=== PATIENT | female | born 1950 | race Hispanic/Latino ===

== ENCOUNTER 2020-10-23 02:39 | Inpatient (IN) | payer MEDICARE ==
[2020-10-23] MEDS ORDERED: ALBUTEROL 2.5 MG/3 ML NEBU IH PRN (09:34)
--- NOTE | 2020-10-23 09:38 | History and Physical Report ---
GP History & Physical - History of Present Illness Date of admission: 10/22/20 Date of Examination: 10/23/20 Reason for Admission: Danger to self, Failure of Outpatient Treatment, Severe anxiety/depression History of Present Illness: Latha Galindo is a 70 y/o female patient who states she was admitted to the [facility] psych unit for severe depression. The patient also says she has a history of "moderate dementia and depression." She says she lost her spouse 3 years ago and her depression started then. The patient says she lacks social support. She says her and her kids "are on the oust." She denies suicidal thoughts at present but states she's thought of it "on and off." She denies homicidal thoughts. The patient also denies hallucinations of any kind. She says she saw a psychiatrist about a year ago but not since then. Diagnoses: MDD, mod dementia Suicide attempts or Self-harm behavior: Denies Prior psychiatric hospitalizations: Denies Substance Abuse history: Denies Previous psychiatric medications tried: Denies Outpatient treatment: Denies PAST MEDICAL HISTORY: None reported Family Psychiatric History: None reported or documented SOCIAL HISTORY Marital Status: Living Arrangements: alone Employment Status: Retired Access to guns/weapons: Denies Education: History of Abuse: none reported Legal History: none reported REVIEW OF SYSTEMS Constitutional: Negative for weight loss ENT: Negative for stridor Respiratory: Negative for cough or hemoptysis All other systems reviewed and are negative MENTAL STATUS EXAMINATION General Appearance and Behavior: Age appropriate, good hygiene, wearing appropriate clothes, sleeping, cooperative Cooperation: Participating/engaged Psychomotor Behavior: Tremors Mood: Depressed Affect and affective range: congruent with mood Thought Process: goal oriented Thought Content: depression, SI on and off Speech: Normal volume, Regular rate and rhythm, Suicidal Ideation: Denies at present, but states has on and off Homicidal Ideation: Denies Hallucinations: Denies Delusions: None elicited Impulse Control: impaired Insight and Judgment: limited insight and judgment, Memory: normal Attention: Normal Orientation: Alert, oriented Assessment and Plan (1)Major Depressive Disorder Current Visit: Yes Status: Acute Treatment Plan Patient admitted for inpatient psychiatric evaluation, medication adjustment and close monitoring The patient's behavior, mood, sleep and appetite will be closely monitored. Patient enrolled in individual and group therapeutic sessions and encouraged to attend. Patient provided with a safe and structured environment. Patient's physical health needs will be addressed by the Hospitalist. Hospitalist Consulted Labs including CBC, CMP, Lipid profile and Hemoglobin A1C levels ordered for baseline reference Social Assessment will be completed and the Weaving Inspector will work with patient and family to ensure a suitable and safe disposition Medication adjustment will be made as clinically indicated Increased home Prozac 30mg po qd Usual Wellness Anabaptist/Preservation: - Start Trazodone 50 mg po QHS & 50 mg po QHS PRN between 10 PM & 2 AM for insomnia - Start Melatonin 5 mg po QHS to promote circadian rhythm The patient agreed on the treatment plan, understood the risk, benefit, alternative treatment, potential consequence of no treatment, and gave informed consent. Estimated days: 7 Post hospital care: primary care provider, psychiatric provider Case staffed with Dr. Agudelo Legal Status: Voluntary Reaction to Hospitalization: Accepting Medications and Allergies Allergies Allergy/AdvReac Type Severity Reaction Status Date / Time No Known Drug Allergies Allergy Unknown Verified 10/23/20 02:44 Home Medications Medication Instructions Recorded Confirmed Last Taken Type ALPRAZolam [Xanax TAB] 1 mg PO TID PRN 10/23/20 10/23/20 Unknown History Albuterol *Only Ed* [Proventil 2.5 mg IH Q4H PRN 10/23/20 10/23/20 Unknown History 0.5% NEBS] Amitriptyline [Elavil] 10 mg PO HS 10/23/20 10/23/20 Unknown History Anastrozole [Arimidex] 1 mg PO DAILY 10/23/20 10/23/20 Unknown History Celecoxib [celeBREX] 200 mg PO DAILY 10/23/20 10/23/20 Unknown History Cyclobenzaprine [Flexeril 10 MG 10 mg PO Q8H 10/23/20 10/23/20 Unknown History TAB] FLUoxetine [PROzac] 20 mg PO QDAY 10/23/20 10/23/20 Unknown History Fenofibrate 160 mg PO HS 10/23/20 10/23/20 Unknown History Gabapentin [Neurontin] 800 mg PO TID 10/23/20 10/23/20 Unknown History HYDROcodone/ACETAMINOPHEN 7.5 - 325 mg PO Q8H 10/23/20 10/23/20 Unknown History [Hydrocodone-Acetamin 7.5-300] Levothyroxine [Synthroid] 150 mcg PO QAM 10/23/20 10/23/20 Unknown History Methylphenidate HCl [Ritalin] 20 mg PO TID 10/23/20 10/23/20 Unknown History Pravastatin [Pravachol] 40 mg PO HS 10/23/20 10/23/20 Unknown History Active Meds: Active Medications Fluoxetine HCl (Fluoxetine 20 Mg Cap) 20 mg PO QDAY [facility] Levothyroxine Sodium (Levothyroxine 150 Mcg Tab) 150 mcg PO QAM [facility] Miscellaneous Medication (Albuterol *Only Ed* [Proventil 0.5% Nebs]) 2.5 mg IH Q4H PRN PRN Reason: Wheezing Miscellaneous Medication (Anastrozole [Arimidex]) 1 mg PO DAILY [facility] Miscellaneous Medication (Gabapentin [Neurontin]) 800 mg PO TID [facility] Pravastatin Sodium (Pravastatin 40 Mg Tab) 40 mg PO HS [facility] Results - Results Labs/Vitals: Last Vital Signs Temp 98.1 F 10/23/20 09:06 Pulse 82 10/23/20 09:06 Resp 20 10/23/20 09:06 BP 121/71 10/23/20 09:06 Pulse Ox 97 10/23/20 09:06 Physical Examination - Constitutional Vitals: Vital Signs Temp Pulse Resp BP Pulse Ox 98.1 F 82 20 121/71 97 10/23/20 09:06 10/23/20 09:06 10/23/20 09:06 10/23/20 09:06 10/23/20 09:06 Temperature -Last 24 Hours Temperature 98.1 F Mental Status Exam - Vital signs Last Vital Signs Temp 98.1 F 10/23/20 09:06 Pulse 82 10/23/20 09:06 Resp 20 10/23/20 09:06 BP 121/71 10/23/20 09:06 Pulse Ox 97 10/23/20 09:06 Physician Certification - Certification Statement Physician Certification Statement: This is an acknowledgement statement that LATHA GALINDO is a 70 year old F who requires inpatient psychiatric admission for treatment which could reasonably be expected to improve the patient's condition for Estimated period of time patient will need to remain in the hospital: [ ] Plan for post-hospital care: [ ]
--- NOTE | 2020-10-23 09:38 | Consultation ---
History of Present Illness - Reason for Consult Consult date: 10/23/20 medical mgt - History of Present Illness Patient is a 70-year-old female with a history of bipolar disorder, depression, fibromyalgia, breast cancer in remission, hypothyroidism, chronic pain presented to ED with chief complaint of helplessness hopelessness feeling suicidal. Patient was admitted for more aggressive psychiatric treatment. Asked to evaluate patient treatment of chronic medical disease. Patient at present states she is in pain from neuropathy and her back. Patient denies any signs or symptoms of hypo or hyperthyroidism. Patient does mention sadness. Does not mention suicide right now at this time. Patient states that she feels nothing is going right for her. Past History Past Medical History: arthritis, GERD, hypertension, hypothyroidism. denies: acute MO, atrial fib, arrhythmia, anemia, CAD, cancer, COPD, diabetes, ESRD, heart failure, hepatitis, HIV/AIDS, hyperthyroidism, hyperlipidemia, liver disease, migraines, PVD, pulmonary embolism, renal failure, seizures, stroke, sarcoidosis Past Surgical History: No surgical history Social history: single, lives with family, smoking, full code. denies: alcohol abuse, IV drug use Family history: no significant family history Medications and Allergies Allergies Allergy/AdvReac Type Severity Reaction Status Date / Time No Known Drug Allergies Allergy Unknown Verified 10/23/20 02:44 Home Medications Medication Instructions Recorded Confirmed Last Taken Type ALPRAZolam [Xanax TAB] 1 mg PO TID PRN 10/23/20 10/23/20 Unknown History Albuterol *Only Ed* [Proventil 2.5 mg IH Q4H PRN 10/23/20 10/23/20 Unknown History 0.5% NEBS] Amitriptyline [Elavil] 10 mg PO HS 10/23/20 10/23/20 Unknown History Anastrozole [Arimidex] 1 mg PO DAILY 10/23/20 10/23/20 Unknown History Celecoxib [celeBREX] 200 mg PO DAILY 10/23/20 10/23/20 Unknown History Cyclobenzaprine [Flexeril 10 MG 10 mg PO Q8H 10/23/20 10/23/20 Unknown History TAB] FLUoxetine [PROzac] 20 mg PO QDAY 10/23/20 10/23/20 Unknown History Fenofibrate 160 mg PO HS 10/23/20 10/23/20 Unknown History Gabapentin [Neurontin] 800 mg PO TID 10/23/20 10/23/20 Unknown History HYDROcodone/ACETAMINOPHEN 7.5 - 325 mg PO Q8H 10/23/20 10/23/20 Unknown History [Hydrocodone-Acetamin 7.5-300] Levothyroxine [Synthroid] 150 mcg PO QAM 10/23/20 10/23/20 Unknown History Methylphenidate HCl [Ritalin] 20 mg PO TID 10/23/20 10/23/20 Unknown History Pravastatin [Pravachol] 40 mg PO HS 10/23/20 10/23/20 Unknown History Review of Systems Constitutional: fatigue, weakness, poor appetite, chronic pain, no weight loss, no weight gain, no fever, no chills, no sweats, no anorexia, no malaise, no lethargy, no chronic headaches, no daytime sleepiness Ears, nose, mouth and throat: no nasal congestion, no bleeding gums, no dysphagia, no hoarseness, no headache, no pain front of neck Cardiovascular: no orthopnea, no lightheadedness, no phlebitis Respiratory: no cough with sputum, no pleurisy, no home oxygen Gastrointestinal: no nausea, no vomiting, no constipation, no change in bowel habits, no melena, no loss of appetite, no heartburn, no jaundice, no early satiety Musculoskeletal: neck stiffness, neck pain, low back pain, leg numbness/tingling, muscle weakness, limitation of motion, no morning stiffness, no muscle cramps, no myalgias, no atrophy, no frequent falls, no fractures, no prior amputations Neurological: weakness, parathesias, numbness, headaches, no head injury, no transient paralysis, no paralysis, no tingling, no seizures, no syncope, no tremors, no ataxia, no lack of coordination, no change in speech, no change in mentation, no memory loss, no double vision, no burning pain, no paralysis Psychiatric: anxiety, memory loss, change in sleep habits, sleep disturbances, insomnia, suicidal ideation, depression, hopelessness, mood swings, no change in appetite, no hallucinations, no paranoia, no anhedonia, no confusion, no sadness/tearfullness Endocrine: no cold intolerance, no polyphagia, no polydipsia, no polyuria, no weight change, no increase in ring/shoe/hat size, no proptosis, no palpatations, no low blood sugars Hematologic/Lymphatic: no easy bleeding Allergic/Immunologic: no allergic rhinitis, no anaphylaxis, no angioedema, no gl uten intolerance Exam - Constitutional Vitals: Temp Pulse Resp BP Pulse Ox 98.1 F 82 20 121/71 97 10/23/20 09:06 10/23/20 09:06 10/23/20 09:06 10/23/20 09:06 10/23/20 09:06 General appearance: Present: no acute distress, well-nourished - EENT Eyes: Present: PERRL ENT: hearing intact, clear oral mucosa - Neck Neck: Present: supple, normal ROM - Respiratory Respiratory effort: normal Respiratory: bilateral: CTA - Cardiovascular Heart Sounds: Present: S1 & S2. Absent: rub, click - Extremities Extremities: pulses symmetrical, No edema Peripheral Pulses: within normal limits - Abdominal General gastrointestinal: Present: soft, non-tender, non-distended, normal bowel sounds Female genitourinary: Present: normal - Integumentary Integumentary: Present: clear, warm, dry - Musculoskeletal Musculoskeletal: gait normal, strength equal bilaterally - Psychiatric Psychiatric: appropriate mood/affect, intact judgment & insight - Neurologic Neurologic: CNII-XII intact, moves all extremities Results - Labs CBC & Chem 7: 10/23/20 23:50 10/23/20 23:50 Assessment and Plan - Patient Problems (1) Fibromyalgia Current Visit: Yes Status: Acute Plan to address problem: Patient with fibromyalgia by history. We will add back her antidepressant. Her description of pain is inconsistent with fibromyalgia at this time. Continue aggressive pain control which she was doing. Should help with her depression and her mood if her pain is treated. (2) Chronic pain Current Visit: Yes Status: Acute Plan to address problem: Hydrocodone 3 times daily. As needed. (3) Hypothyroidism Current Visit: Yes Status: Acute Plan to address problem: No signs and symptoms of hypo or hyperthyroidism. We will continue Synthroid at current dosage. (4) Herniated disc Current Visit: Yes Status: Acute Plan to address problem: We will treat with NSAID Celebrex Wilkes 2 inhibitor. We will add as needed hydrocodone. Also will treat the neuropathy with gabapentin.
[2020-10-23] MEDS ORDERED: FLUoxetine 20 MG CAP PO SCH (10:00)
[2020-10-23] MEDS ORDERED: NON-FORMULARY EACH (Anastrozole [Arimidex] 1 MG Tablet) PO SCH (10:00)
[2020-10-23] MEDS: FLUoxetine 10 MG TAB PO SCH (10:19)
[2020-10-23] MEDS: CELECOXIB 200 MG CAP PO SCH (10:20)
[2020-10-23] MEDS: CYCLOBENZAPRINE 10 MG TAB PO SCH ×2 (10:21→18:00)
[2020-10-23] MEDS: LEVOTHYROXINE 150 MCG TAB PO SCH (10:21)
[2020-10-23] MEDS: ALPRAZolam 1 MG TAB PO PRN ×2 (10:24→21:08)
[2020-10-23] MEDS: GABAPENTIN 400 MG CAP PO SCH ×2 (13:50→20:43)
[2020-10-23 14:44] LABS: Bacteria,Urine 1+ /HPF (Negative); Bilirubin,Urine NEG (Negative); Blood,Urine NEG (Negative); Color,Urine Yellow (Yellow); Protein,Urine <15 mg/dL mg/dL (Negative); RBC,Urine < 1.0 /HPF (0.0-6.0); Urobilinogen,Urine < 2.0 mg/dL (<2.0)
[2020-10-23] MEDS: PRAVASTATIN 40 MG TAB PO SCH (21:06)
[2020-10-23] MEDS: FENOFIBRATE 145 MG TAB PO SCH (21:06)
[2020-10-23] MEDS: AMITRIPTYLINE 10 MG TAB PO SCH (21:06)
[2020-10-24 00:45] LABS: Basophils % (Auto) 0.6 % (0.0-1.8); Eosinophils # (Auto) 0.1 K/mm3 (0.0-0.4); Eosinophils % (Auto) 1.5 % (0.0-4.3); Hematocrit 36.6 % (30.3-42.9); Hemoglobin 12.1 gm/dl (10.1-14.3); Lymphocytes # (Auto) 2.5 K/mm3 (1.2-5.4); Lymphocytes % (Auto) 28.3 % (13.4-35.0); Mean Corpuscular HGB Conc 33 % (30-34); Mean Corpuscular Volume 82 fl (79-97); Monocytes # (Auto) 0.8 K/mm3 (0.0-0.8); Monocytes % (Auto) 9.1 % (0.0-7.3); Platelet Count 401 K/mm3 (140-440); Red Blood Count 4.47 M/mm3 (3.65-5.03); Red Cell Distribution Width 15.7 % (13.2-15.2)
[2020-10-24 03:46] LABS: Alanine Aminotransferase 10 units/L (7-56); Albumin 4.3 g/dL (3.9-5); BUN/Creatinine Ratio 24; Blood Urea Nitrogen 19 mg/dL (7-17); Calcium 9.6 mg/dL (8.4-10.2); HDL Cholesterol 42 mg/dL (40-59); Hemolysis Index 7; LDL Cholesterol,Direct 175 mg/dL (50-130)
[2020-10-24] MEDS: CYCLOBENZAPRINE 10 MG TAB PO SCH ×3 (06:50→17:19)
[2020-10-24] MEDS: GABAPENTIN 400 MG CAP PO SCH ×3 (08:31→20:52)
[2020-10-24] MEDS: LEVOTHYROXINE 150 MCG TAB PO SCH (09:20)
[2020-10-24] MEDS: FLUoxetine 10 MG TAB PO SCH (09:20)
[2020-10-24] MEDS: CELECOXIB 200 MG CAP PO SCH (09:21)
--- NOTE | 2020-10-24 09:52 | Progress Note ---
Subjective Date of service: 10/24/20 Principal diagnosis: MDD Subjective Comment: The patient was seen today. She is lying awake in her room. She says she is depressed, lonely and needs someone to talk to. The patient encouraged to get up and go in the dayroom to be around people. She states she would. She denies SI/HI or hallucinations. She suicide thoughts come and go. REVIEW OF SYSTEMS Constitutional: Negative for weight loss ENT: Negative for stridor Respiratory: Negative for cough or hemoptysis All other systems reviewed and are negative MENTAL STATUS EXAMINATION General Appearance and Behavior: Age appropriate, good hygiene, wearing appropriate clothes, sleeping, cooperative Cooperation: Participating/engaged Psychomotor Behavior: Tremors Mood: Depressed Affect and affective range: congruent with mood Thought Process: goal oriented Thought Content: depression, SI on and off Speech: Normal volume, Regular rate and rhythm, Suicidal Ideation: Denies at present, but states has on and off Homicidal Ideation: Denies Hallucinations: Denies Delusions: None elicited Impulse Control: impaired Insight and Judgment: limited insight and judgment, Memory: normal Attention: Normal Orientation: Alert, oriented Assessment and Plan (1)Major Depressive Disorder Current Visit: Yes Status: Acute Treatment Plan Patient admitted for inpatient psychiatric evaluation, medication adjustment and close monitoring The patient's behavior, mood, sleep and appetite will be closely monitored. Patient enrolled in individual and group therapeutic sessions and encouraged to attend. Patient provided with a safe and structured environment. Patient's physical health needs will be addressed by the Hospitalist. [facility] Labs including CBC, CMP, Lipid profile and Hemoglobin A1C levels ordered for baseline reference Social Assessment will be completed and the Boom Worker will work with patient and family to ensure a suitable and safe disposition Medication adjustment will be made as clinically indicated Increased home Prozac 40mg po qd Usual Wellness Anabaptism/Preservation: - Start Trazodone 50 mg po QHS & 50 mg po QHS PRN between 10 PM & 2 AM for insomnia - Start Melatonin 5 mg po QHS to promote circadian rhythm The patient agreed on the treatment plan, understood the risk, benefit, alternative treatment, potential consequence of no treatment, and gave informed consent. Estimated days: 6 Post hospital care: primary care provider, psychiatric provider Case staffed with Dr. Agudelo Medications and Allergies Allergies Allergy/AdvReac Type Severity Reaction Status Date / Time No Known Drug Allergies Allergy Unknown Verified 10/23/20 02:44 Home Medications Medication Instructions Recorded Confirmed Last Taken Type ALPRAZolam [Xanax TAB] 1 mg PO TID PRN 10/23/20 10/23/20 Unknown History Albuterol *Only Ed* [Proventil 2.5 mg IH Q4H PRN 10/23/20 10/23/20 Unknown History 0.5% NEBS] Amitriptyline [Elavil] 10 mg PO HS 10/23/20 10/23/20 Unknown History Anastrozole [Arimidex] 1 mg PO DAILY 10/23/20 10/23/20 Unknown History Celecoxib [celeBREX] 200 mg PO DAILY 10/23/20 10/23/20 Unknown History Cyclobenzaprine [Flexeril 10 MG 10 mg PO Q8H 10/23/20 10/23/20 Unknown History TAB] FLUoxetine [PROzac] 20 mg PO QDAY 10/23/20 10/23/20 Unknown History Fenofibrate 160 mg PO HS 10/23/20 10/23/20 Unknown History Gabapentin [Neurontin] 800 mg PO TID 10/23/20 10/23/20 Unknown History HYDROcodone/ACETAMINOPHEN 7.5 - 325 mg PO Q8H 10/23/20 10/23/20 Unknown History [Hydrocodone-Acetamin 7.5-300] Levothyroxine [Synthroid] 150 mcg PO QAM 10/23/20 10/23/20 Unknown History Methylphenidate HCl [Ritalin] 20 mg PO TID 10/23/20 10/23/20 Unknown History Pravastatin [Pravachol] 40 mg PO HS 10/23/20 10/23/20 Unknown History Active Meds: Active Medications Albuterol (Albuterol 2.5 Mg/3 Ml Nebu) 2.5 mg IH Q4H PRN PRN Reason: Wheezing Alprazolam (Alprazolam 1 Mg Tab) 1 mg PO TID PRN PRN Reason: Anxiety Last Admin: 10/23/20 21:08 Dose: 1 mg Documented by: Amitriptyline HCl (Amitriptyline 10 Mg Tab) 10 mg PO [facility] Last Admin: 10/23/20 21:06 Dose: 10 mg Documented by: Celecoxib (Celecoxib 200 Mg Cap) 200 mg PO DAILY [facility] Last Admin: 10/24/20 09:21 Dose: 200 mg Documented by: Cyclobenzaprine HCl (Cyclobenzaprine 10 Mg Tab) 10 mg PO Q8H [facility] Last Admin: 10/24/20 09:21 Dose: 10 mg Documented by: Fenofibrate (Fenofibrate 145 Mg Tab) 145 mg PO HS [facility] Last Admin: 10/23/20 21:06 Dose: 145 mg Documented by: Fluoxetine HCl (Fluoxetine 10 Mg Tab) 30 mg PO QDAY [facility] Last Admin: 10/24/20 09:20 Dose: 30 mg Documented by: Gabapentin (Gabapentin 400 Mg Cap) 800 mg PO TID [facility] Last Admin: 10/24/20 08:31 Dose: 800 mg Documented by: Levothyroxine Sodium (Levothyroxine 150 Mcg Tab) 150 mcg PO QAM [facility] Last Admin: 10/24/20 09:20 Dose: 150 mcg Documented by: Miscellaneous Medication (Anastrozole [Arimidex]) 1 mg PO DAILY [facility] Pravastatin Sodium (Pravastatin 40 Mg Tab) 40 mg PO HS [facility] Last Admin: 10/23/20 21:06 Dose: 40 mg Documented by: Results - Results Labs/Vitals: Laboratory Last Values WBC 8.9 K/mm3 (4.5-11.0) 10/23/20 23:50 RBC 4.47 M/mm3 (3.65-5.03) 10/23/20 23:50 Hgb 12.1 gm/dl (10.1-14.3) 10/23/20 23:50 Hct 36.6 % (30.3-42.9) 10/23/20 23:50 MCV 82 fl (79-97) 10/23/20 23:50 MCH 27 pg (28-32) L 10/23/20 23:50 MCHC 33 % (30-34) 10/23/20 23:50 RDW 15.7 % (13.2-15.2) H 10/23/20 23:50 Plt Count 401 K/mm3 (140-440) 10/23/20 23:50 Lymph % (Auto) 28.3 % (13.4-35.0) 10/23/20 23:50 [place] % (Auto) 9.1 % (0.0-7.3) H 10/23/20 23:50 Eos % (Auto) 1.5 % (0.0-4.3) 10/23/20 23:50 Baso % (Auto) 0.6 % (0.0-1.8) 10/23/20 23:50 Lymph # (Auto) 2.5 K/mm3 (1.2-5.4) 10/23/20 23:50 Bacon # (Auto) 0.8 K/mm3 (0.0-0.8) 10/23/20 23:50 Eos # (Auto) 0.1 K/mm3 (0.0-0.4) 10/23/20 23:50 Baso # (Auto) 0.0 K/mm3 (0.0-0.1) 10/23/20 23:50 Seg Neutrophils % 60.5 % (40.0-70.0) 10/23/20 23:50 Seg Neutrophils # 5.4 K/mm3 (1.8-7.7) 10/23/20 23:50 Sodium 142 mmol/L (137-145) 10/23/20 23:50 Potassium 4.2 mmol/L (3.6-5.0) 10/23/20 23:50 Chloride 101.7 mmol/L (98-107) 10/23/20 23:50 Carbon Dioxide 25 mmol/L (22-30) 10/23/20 23:50 Anion Gap 20 mmol/L 10/23/20 23:50 BUN 19 mg/dL (7-17) H 10/23/20 23:50 Creatinine 0.8 mg/dL (0.6-1.2) 10/23/20 23:50 Estimated GFR > 60 ml/min 10/23/20 23:50 BUN/Creatinine Ratio 24 % 10/23/20 23:50 Glucose 88 mg/dL (65-100) 10/23/20 23:50 POC Glucose 91 mg/dL (70-105) 10/23/20 11:11 Hemoglobin A1c 5.9 % (4-6) 10/23/20 23:50 Calcium 9.6 mg/dL (8.4-10.2) 10/23/20 23:50 Total Bilirubin 0.20 mg/dL (0.1-1.2) 10/23/20 23:50 AST 22 units/L (5-40) 10/23/20 23:50 ALT 10 units/L (7-56) 10/23/20 23:50 Alkaline Phosphatase 163 units/L (35-129) H 10/23/20 23:50 Total Protein 6.7 g/dL (6.3-8.2) 10/23/20 23:50 Albumin 4.3 g/dL (3.9-5) 10/23/20 23:50 Albumin/Globulin Ratio 1.8 % 10/23/20 23:50 Triglycerides 265 mg/dL (2-149) H 10/23/20 23:50 Cholesterol 248 mg/dL (50-199) H 10/23/20 23:50 LDL Cholesterol Direct 175 mg/dL (50-130) H 10/23/20 23:50 HDL Cholesterol 42 mg/dL (40-59) 10/23/20 23:50 Cholesterol/HDL Ratio 5.90 % 10/23/20 23:50 TSH 1.900 mlU/mL (0.270-4.200) 10/23/20 23:50 Urine Color Yellow (Yellow) 10/23/20 14:00 Urine Turbidity Clear (Clear) 10/23/20 14:00 Urine pH 5.0 (5.0-7.0) 10/23/20 14:00 Ur Specific [place] 1.011 (1.003-1.030) 10/23/20 14:00 Urine Protein <15 mg/dl mg/dL (Negative) 10/23/20 14:00 Urine Glucose (UA) Neg mg/dL (Negative) 10/23/20 14:00 Urine Ketones Neg mg/dL (Negative) 10/23/20 14:00 Urine Blood Neg (Negative) 10/23/20 14:00 Urine Nitrite Neg (Negative) 10/23/20 14:00 Urine Bilirubin Neg (Negative) 10/23/20 14:00 Urine Urobilinogen < 2.0 mg/dL (<2.0) 10/23/20 14:00 Ur Leukocyte Esterase Mod (Negative) 10/23/20 14:00 Urine WBC (Auto) 2.0 /HPF (0.0-6.0) 10/23/20 14:00 Urine RBC (Auto) < 1.0 /HPF (0.0-6.0) 10/23/20 14:00 U Epithel Cells (Auto) 2.0 /HPF (0-13.0) 10/23/20 14:00 Urine Bacteria (Auto) 1+ /HPF (Negative) 10/23/20 14:00 Last Vital Signs Temp 98.0 F 10/24/20 08:34 Pulse 75 10/24/20 08:34 Resp 18 10/24/20 08:34 BP 142/86 10/24/20 08:34 Pulse Ox 100 10/24/20 08:34
[2020-10-24] MEDS ORDERED: FLUoxetine 10 MG TAB PO SCH (11:00)
[2020-10-24] MEDS: ALPRAZolam 1 MG TAB PO PRN (20:51)
[2020-10-24] MEDS: FENOFIBRATE 145 MG TAB PO SCH (21:40)
[2020-10-24] MEDS: AMITRIPTYLINE 10 MG TAB PO SCH (21:40)
[2020-10-24] MEDS: PRAVASTATIN 40 MG TAB PO SCH (21:40)
[2020-10-25] MEDS: CYCLOBENZAPRINE 10 MG TAB PO SCH ×3 (02:05→21:35)
[2020-10-25] MEDS: LEVOTHYROXINE 150 MCG TAB PO SCH (06:15)
[2020-10-25] MEDS: GABAPENTIN 400 MG CAP PO SCH ×3 (08:20→20:49)
[2020-10-25] MEDS: CELECOXIB 200 MG CAP PO SCH (09:09)
[2020-10-25] MEDS: FLUoxetine 20 MG CAP PO SCH (09:10)
--- NOTE | 2020-10-25 10:25 | Progress Note ---
Subjective Date of service: 10/25/20 Principal diagnosis: MDD Subjective Comment: The patient was seen today. She is lying awake in her room. She says she is not good. The patient states "I'm not doing anything but laying here. No therapy. No one to talk to." The patient encouraged to get up and go in the day room. She says "I do but they all just mumble." I informed the patient that tomorrow she would get activity therapy. She was satisfied hearing this. She says "I'm depressed. I need help." She denies SI/HI or hallucinations of any kind. She says "I haven't had the suicidal thoughts this morning, but yesterday a little." REVIEW OF SYSTEMS Constitutional: Negative for weight loss ENT: Negative for stridor Respiratory: Negative for cough or hemoptysis All other systems reviewed and are negative MENTAL STATUS EXAMINATION General Appearance and Behavior: Age appropriate, good hygiene, wearing appropriate clothes, sleeping, cooperative Cooperation: Participating/engaged Psychomotor Behavior: Tremors Mood: Depressed Affect and affective range: congruent with mood Thought Process: goal oriented Thought Content: depression, SI on and off Speech: Normal volume, Regular rate and rhythm, Suicidal Ideation: Denies at present, but states has on and off Homicidal Ideation: Denies Hallucinations: Denies Delusions: None elicited Impulse Control: impaired Insight and Judgment: limited insight and judgment, Memory: normal Attention: Normal Orientation: Alert, oriented Assessment and Plan (1)Major Depressive Disorder Current Visit: Yes Status: Acute Treatment Plan Patient admitted for inpatient psychiatric evaluation, medication adjustment and close monitoring The patient's behavior, mood, sleep and appetite will be closely monitored. Patient enrolled in individual and group therapeutic sessions and encouraged to attend. Patient provided with a safe and structured environment. Patient's physical health needs will be addressed by the Hospitalist. Hospitalist Consulted Labs including CBC, CMP, Lipid profile and Hemoglobin A1C levels ordered for baseline reference Social Assessment will be completed and the Aquaculture Farm Manager will work with patient and family to ensure a suitable and safe disposition Medication adjustment will be made as clinically indicated Increased home Prozac 40mg po qd yesterday No changes made today Usual Wellness Orthodoxy/Preservation: - Start Trazodone 50 mg po QHS & 50 mg po QHS PRN between 10 PM & 2 AM for insomnia - Start Melatonin 5 mg po QHS to promote circadian rhythm The patient agreed on the treatment plan, understood the risk, benefit, alternative treatment, potential consequence of no treatment, and gave informed consent. Estimated days: 6 Post hospital care: primary care provider, psychiatric provider Case staffed with Dr. Agudelo Medications and Allergies Allergies Allergy/AdvReac Type Severity Reaction Status Date / Time No Known Drug Allergies Allergy Unknown Verified 10/23/20 02:44 Home Medications Medication Instructions Recorded Confirmed Last Taken Type ALPRAZolam [Xanax TAB] 1 mg PO TID PRN 10/23/20 10/23/20 Unknown History Albuterol *Only Ed* [Proventil 2.5 mg IH Q4H PRN 10/23/20 10/23/20 Unknown History 0.5% NEBS] Amitriptyline [Elavil] 10 mg PO HS 10/23/20 10/23/20 Unknown History Anastrozole [Arimidex] 1 mg PO DAILY 10/23/20 10/23/20 Unknown History Celecoxib [celeBREX] 200 mg PO DAILY 10/23/20 10/23/20 Unknown History Cyclobenzaprine [Flexeril 10 MG 10 mg PO Q8H 10/23/20 10/23/20 Unknown History TAB] FLUoxetine [PROzac] 20 mg PO QDAY 10/23/20 10/23/20 Unknown History Fenofibrate 160 mg PO HS 10/23/20 10/23/20 Unknown History Gabapentin [Neurontin] 800 mg PO TID 10/23/20 10/23/20 Unknown History HYDROcodone/ACETAMINOPHEN 7.5 - 325 mg PO Q8H 10/23/20 10/23/20 Unknown History [Hydrocodone-Acetamin 7.5-300] Levothyroxine [Synthroid] 150 mcg PO QAM 10/23/20 10/23/20 Unknown History Methylphenidate HCl [Ritalin] 20 mg PO TID 10/23/20 10/23/20 Unknown History Pravastatin [Pravachol] 40 mg PO HS 10/23/20 10/23/20 Unknown History Active Meds: Active Medications Albuterol (Albuterol 2.5 Mg/3 Ml Nebu) 2.5 mg IH Q4H PRN PRN Reason: Wheezing Alprazolam (Alprazolam 1 Mg Tab) 1 mg PO TID PRN PRN Reason: Anxiety Last Admin: 10/24/20 20:51 Dose: 1 mg Documented by: Amitriptyline HCl (Amitriptyline 10 Mg Tab) 10 mg PO HS [facility] Last Admin: 10/24/20 21:40 Dose: 10 mg Documented by: Celecoxib (Celecoxib 200 Mg Cap) 200 mg PO DAILY [facility] Last Admin: 10/25/20 09:09 Dose: 200 mg Documented by: Cyclobenzaprine HCl (Cyclobenzaprine 10 Mg Tab) 10 mg PO Q8H [facility] Fenofibrate (Fenofibrate 145 Mg Tab) 145 mg PO HS [facility] Last Admin: 10/24/20 21:40 Dose: 145 mg Documented by: Fluoxetine HCl (Fluoxetine 20 Mg Cap) 40 mg PO QDAY [facility] Last Admin: 10/25/20 09:10 Dose: 40 mg Documented by: Gabapentin (Gabapentin 400 Mg Cap) 800 mg PO TID [facility] Last Admin: 10/25/20 08:20 Dose: 800 mg Documented by: Levothyroxine Sodium (Levothyroxine 150 Mcg Tab) 150 mcg PO QAM@0600 [facility] Last Admin: 10/25/20 06:15 Dose: 150 mcg Documented by: Miscellaneous Medication (Anastrozole [Arimidex]) 1 mg PO DAILY [facility] Pravastatin Sodium (Pravastatin 40 Mg Tab) 40 mg PO HS [facility] Last Admin: 10/24/20 21:40 Dose: 40 mg Documented by: Results - Results Labs/Vitals: Laboratory Last Values WBC 8.9 K/mm3 (4.5-11.0) 10/23/20 23:50 RBC 4.47 M/mm3 (3.65-5.03) 10/23/20 23:50 Hgb 12.1 gm/dl (10.1-14.3) 10/23/20 23:50 Hct 36.6 % (30.3-42.9) 10/23/20 23:50 MCV 82 fl (79-97) 10/23/20 23:50 MCH 27 pg (28-32) L 10/23/20 23:50 MCHC 33 % (30-34) 10/23/20 23:50 RDW 15.7 % (13.2-15.2) H 10/23/20 23:50 Plt Count 401 K/mm3 (140-440) 10/23/20 23:50 Lymph % (Auto) 28.3 % (13.4-35.0) 10/23/20 23:50 White % (Auto) 9.1 % (0.0-7.3) H 10/23/20 23:50 Eos % (Auto) 1.5 % (0.0-4.3) 10/23/20 23:50 Baso % (Auto) 0.6 % (0.0-1.8) 10/23/20 23:50 Lymph # (Auto) 2.5 K/mm3 (1.2-5.4) 10/23/20 23:50 White # (Auto) 0.8 K/mm3 (0.0-0.8) 10/23/20 23:50 Eos # (Auto) 0.1 K/mm3 (0.0-0.4) 10/23/20 23:50 Baso # (Auto) 0.0 K/mm3 (0.0-0.1) 10/23/20 23:50 Seg Neutrophils % 60.5 % (40.0-70.0) 10/23/20 23:50 Seg Neutrophils # 5.4 K/mm3 (1.8-7.7) 10/23/20 23:50 Sodium 142 mmol/L (137-145) 10/23/20 23:50 Potassium 4.2 mmol/L (3.6-5.0) 10/23/20 23:50 Chloride 101.7 mmol/L (98-107) 10/23/20 23:50 Carbon Dioxide 25 mmol/L (22-30) 10/23/20 23:50 Anion Gap 20 mmol/L 10/23/20 23:50 BUN 19 mg/dL (7-17) H 10/23/20 23:50 Creatinine 0.8 mg/dL (0.6-1.2) 10/23/20 23:50 Estimated GFR > 60 ml/min 10/23/20 23:50 BUN/Creatinine Ratio 24 % 10/23/20 23:50 Glucose 88 mg/dL (65-100) 10/23/20 23:50 POC Glucose 91 mg/dL (70-105) 10/23/20 11:11 Hemoglobin A1c 5.9 % (4-6) 10/23/20 23:50 Calcium 9.6 mg/dL (8.4-10.2) 10/23/20 23:50 Total Bilirubin 0.20 mg/dL (0.1-1.2) 10/23/20 23:50 AST 22 units/L (5-40) 10/23/20 23:50 ALT 10 units/L (7-56) 10/23/20 23:50 Alkaline Phosphatase 163 units/L (35-129) H 10/23/20 23:50 Total Protein 6.7 g/dL (6.3-8.2) 10/23/20 23:50 Albumin 4.3 g/dL (3.9-5) 10/23/20 23:50 Albumin/Globulin Ratio 1.8 % 10/23/20 23:50 Triglycerides 265 mg/dL (2-149) H 10/23/20 23:50 Cholesterol 248 mg/dL (50-199) H 10/23/20 23:50 LDL Cholesterol Direct 175 mg/dL (50-130) H 10/23/20 23:50 HDL Cholesterol 42 mg/dL (40-59) 10/23/20 23:50 Cholesterol/HDL Ratio 5.90 % 10/23/20 23:50 TSH 1.900 mlU/mL (0.270-4.200) 10/23/20 23:50 Urine Color Yellow (Yellow) 10/23/20 14:00 Urine Turbidity Clear (Clear) 10/23/20 14:00 Urine pH 5.0 (5.0-7.0) 10/23/20 14:00 Ur Specific [place] 1.011 (1.003-1.030) 10/23/20 14:00 Urine Protein <15 mg/dl mg/dL (Negative) 10/23/20 14:00 Urine Glucose (UA) Neg mg/dL (Negative) 10/23/20 14:00 Urine Ketones Neg mg/dL (Negative) 10/23/20 14:00 Urine Blood Neg (Negative) 10/23/20 14:00 Urine Nitrite Neg (Negative) 10/23/20 14:00 Urine Bilirubin Neg (Negative) 10/23/20 14:00 Urine Urobilinogen < 2.0 mg/dL (<2.0) 10/23/20 14:00 Ur Leukocyte Esterase Mod (Negative) 10/23/20 14:00 Urine WBC (Auto) 2.0 /HPF (0.0-6.0) 10/23/20 14:00 Urine RBC (Auto) < 1.0 /HPF (0.0-6.0) 10/23/20 14:00 U Epithel Cells (Auto) 2.0 /HPF (0-13.0) 10/23/20 14:00 Urine Bacteria (Auto) 1+ /HPF (Negative) 10/23/20 14:00 Last Vital Signs Temp 97.8 F 10/25/20 07:38 Pulse 76 10/25/20 07:38 Resp 18 10/25/20 07:38 BP 134/64 10/25/20 07:38 Pulse Ox 99 10/25/20 07:38
[2020-10-25] MEDS: PRAVASTATIN 40 MG TAB PO SCH (21:35)
[2020-10-25] MEDS: AMITRIPTYLINE 10 MG TAB PO SCH (21:35)
[2020-10-25] MEDS: FENOFIBRATE 145 MG TAB PO SCH (21:35)
[2020-10-26] MEDS: CYCLOBENZAPRINE 10 MG TAB PO SCH ×3 (05:49→21:32)
[2020-10-26] MEDS: LEVOTHYROXINE 150 MCG TAB PO SCH (05:49)
[2020-10-26] MEDS: CELECOXIB 200 MG CAP PO SCH (09:19)
[2020-10-26] MEDS: GABAPENTIN 400 MG CAP PO SCH ×3 (09:20→20:56)
[2020-10-26] MEDS: FLUoxetine 20 MG CAP PO SCH (09:20)
--- NOTE | 2020-10-26 09:30 | Progress Note ---
Subjective Date of service: 10/26/20 Principal diagnosis: MDD Subjective Comment: The patient was seen today. She is lying in bed. She is awake. She states she is tired. Although she states her depression is better and says she's not as depressed as she was coming in here, the patient says she doesn't feel she's getting any help. She says she thought she would get therapy of some sort. Advised the patient that recreational therapy would be today. She denies SI/HI. Reason for continued inpatient treatment: The patient verbalizes feeling better. REVIEW OF SYSTEMS Constitutional: Negative for weight loss ENT: Negative for stridor Respiratory: Negative for cough or hemoptysis All other systems reviewed and are negative MENTAL STATUS EXAMINATION General Appearance and Behavior: Age appropriate, good hygiene, wearing appropriate clothes, sleeping, cooperative Cooperation: Participating/engaged Psychomotor Behavior: Tremors Mood: Depressed Affect and affective range: congruent with mood Thought Process: goal oriented Thought Content: depression, SI on and off Speech: Normal volume, Regular rate and rhythm, Suicidal Ideation: Denies at present, but states has on and off Homicidal Ideation: Denies Hallucinations: Denies Delusions: None elicited Impulse Control: impaired Insight and Judgment: limited insight and judgment, Memory: normal Attention: Normal Orientation: Alert, oriented Assessment and Plan (1)Major Depressive Disorder Current Visit: Yes Status: Acute Treatment Plan Patient admitted for inpatient psychiatric evaluation, medication adjustment and close monitoring The patient's behavior, mood, sleep and appetite will be closely monitored. Patient enrolled in individual and group therapeutic sessions and encouraged to attend. Patient provided with a safe and structured environment. Patient's physical health needs will be addressed by the Hospitalist. Hospita list Consulted Labs including CBC, CMP, Lipid profile and Hemoglobin A1C levels ordered for baseline reference Social Assessment will be completed and the Trading Specialist will work with patient and family to ensure a suitable and safe disposition Medication adjustment will be made as clinically indicated Increased home Prozac 40mg po qd yesterday No changes made today Usual Wellness Orthodox/Preservation: - Start Trazodone 50 mg po QHS & 50 mg po QHS PRN between 10 PM & 2 AM for insomnia - Start Melatonin 5 mg po QHS to promote circadian rhythm The patient agreed on the treatment plan, understood the risk, benefit, alternative treatment, potential consequence of no treatment, and gave informed consent. Estimated days: 6 Post hospital care: primary care provider, psychiatric provider Case staffed with Dr. Agudelo Medications and Allergies Allergies Allergy/AdvReac Type Severity Reaction Status Date / Time No Known Drug Allergies Allergy Unknown Verified 10/23/20 02:44 Home Medications Medication Instructions Recorded Confirmed Last Taken Type ALPRAZolam [Xanax TAB] 1 mg PO TID PRN 10/23/20 10/23/20 Unknown History Albuterol *Only Ed* [Proventil 2.5 mg IH Q4H PRN 10/23/20 10/23/20 Unknown History 0.5% NEBS] Amitriptyline [Elavil] 10 mg PO HS 10/23/20 10/23/20 Unknown History Anastrozole [Arimidex] 1 mg PO DAILY 10/23/20 10/23/20 Unknown History Celecoxib [celeBREX] 200 mg PO DAILY 10/23/20 10/23/20 Unknown History Cyclobenzaprine [Flexeril 10 MG 10 mg PO Q8H 10/23/20 10/23/20 Unknown History TAB] FLUoxetine [PROzac] 20 mg PO QDAY 10/23/20 10/23/20 Unknown History Fenofibrate 160 mg PO HS 10/23/20 10/23/20 Unknown History Gabapentin [Neurontin] 800 mg PO TID 10/23/20 10/23/20 Unknown History HYDROcodone/ACETAMINOPHEN 7.5 - 325 mg PO Q8H 10/23/20 10/23/20 Unknown History [Hydrocodone-Acetamin 7.5-300] Levothyroxine [Synthroid] 150 mcg PO QAM 10/23/20 10/23/20 Unknown History Methylphenidate HCl [Ritalin] 20 mg PO TID 10/23/20 10/23/20 Unknown History Pravastatin [Pravachol] 40 mg PO HS 10/23/20 10/23/20 Unknown History Active Meds: Active Medications Albuterol (Albuterol 2.5 Mg/3 Ml Nebu) 2.5 mg IH Q4H PRN PRN Reason: Wheezing Alprazolam (Alprazolam 1 Mg Tab) 1 mg PO TID PRN PRN Reason: Anxiety Last Admin: 10/24/20 20:51 Dose: 1 mg Documented by: Amitriptyline HCl (Amitriptyline 10 Mg Tab) 10 mg PO [facility] Last Admin: 10/25/20 21:35 Dose: 10 mg Documented by: Celecoxib (Celecoxib 200 Mg Cap) 200 mg PO DAILY [facility] Last Admin: 10/26/20 09:19 Dose: 200 mg Documented by: Cyclobenzaprine HCl (Cyclobenzaprine 10 Mg Tab) 10 mg PO Q8H [facility] Last Admin: 10/26/20 05:49 Dose: 10 mg Documented by: Fenofibrate (Fenofibrate 145 Mg Tab) 145 mg PO HS [facility] Last Admin: 10/25/20 21:35 Dose: 145 mg Documented by: Fluoxetine HCl (Fluoxetine 20 Mg Cap) 40 mg PO QDAY [facility] Last Admin: 10/26/20 09:20 Dose: 40 mg Documented by: Gabapentin (Gabapentin 400 Mg Cap) 800 mg PO TID [facility] Last Admin: 10/26/20 09:20 Dose: 800 mg Documented by: Levothyroxine Sodium (Levothyroxine 150 Mcg Tab) 150 mcg PO QAM@0600 [facility] Last Admin: 10/26/20 05:49 Dose: 150 mcg Documented by: Miscellaneous Medication (Anastrozole [Arimidex]) 1 mg PO DAILY [facility] Pravastatin Sodium (Pravastatin 40 Mg Tab) 40 mg PO HS [facility] Last Admin: 10/25/20 21:35 Dose: 40 mg Documented by: Results - Results Labs/Vitals: Laboratory Last Values WBC 8.9 K/mm3 (4.5-11.0) 10/23/20 23:50 RBC 4.47 M/mm3 (3.65-5.03) 10/23/20 23:50 Hgb 12.1 gm/dl (10.1-14.3) 10/23/20 23:50 Hct 36.6 % (30.3-42.9) 10/23/20 23:50 MCV 82 fl (79-97) 10/23/20 23:50 MCH 27 pg (28-32) L 10/23/20 23:50 MCHC 33 % (30-34) 10/23/20 23:50 RDW 15.7 % (13.2-15.2) H 10/23/20 23:50 Plt Count 401 K/mm3 (140-440) 10/23/20 23:50 Lymph % (Auto) 28.3 % (13.4-35.0) 10/23/20 23:50 [place] % (Auto) 9.1 % (0.0-7.3) H 10/23/20 23:50 Eos % (Auto) 1.5 % (0.0-4.3) 10/23/20 23:50 Baso % (Auto) 0.6 % (0.0-1.8) 10/23/20 23:50 Lymph # (Auto) 2.5 K/mm3 (1.2-5.4) 10/23/20 23:50 Thomas # (Auto) 0.8 K/mm3 (0.0-0.8) 10/23/20 23:50 Eos # (Auto) 0.1 K/mm3 (0.0-0.4) 10/23/20 23:50 Baso # (Auto) 0.0 K/mm3 (0.0-0.1) 10/23/20 23:50 Seg Neutrophils % 60.5 % (40.0-70.0) 10/23/20 23:50 Seg Neutrophils # 5.4 K/mm3 (1.8-7.7) 10/23/20 23:50 Sodium 142 mmol/L (137-145) 10/23/20 23:50 Potassium 4.2 mmol/L (3.6-5.0) 10/23/20 23:50 Chloride 101.7 mmol/L (98-107) 10/23/20 23:50 Carbon Dioxide 25 mmol/L (22-30) 10/23/20 23:50 Anion Gap 20 mmol/L 10/23/20 23:50 BUN 19 mg/dL (7-17) H 10/23/20 23:50 Creatinine 0.8 mg/dL (0.6-1.2) 10/23/20 23:50 Estimated GFR > 60 ml/min 10/23/20 23:50 BUN/Creatinine Ratio 24 % 10/23/20 23:50 Glucose 88 mg/dL (65-100) 10/23/20 23:50 POC Glucose 91 mg/dL (70-105) 10/23/20 11:11 Hemoglobin A1c 5.9 % (4-6) 10/23/20 23:50 Calcium 9.6 mg/dL (8.4-10.2) 10/23/20 23:50 Total Bilirubin 0.20 mg/dL (0.1-1.2) 10/23/20 23:50 AST 22 units/L (5-40) 10/23/20 23:50 ALT 10 units/L (7-56) 10/23/20 23:50 Alkaline Phosphatase 163 units/L (35-129) H 10/23/20 23:50 Total Protein 6.7 g/dL (6.3-8.2) 10/23/20 23:50 Albumin 4.3 g/dL (3.9-5) 10/23/20 23:50 Albumin/Globulin Ratio 1.8 % 10/23/20 23:50 Triglycerides 265 mg/dL (2-149) H 10/23/20 23:50 Cholesterol 248 mg/dL (50-199) H 10/23/20 23:50 LDL Cholesterol Direct 175 mg/dL (50-130) H 10/23/20 23:50 HDL Cholesterol 42 mg/dL (40-59) 10/23/20 23:50 Cholesterol/HDL Ratio 5.90 % 10/23/20 23:50 TSH 1.900 mlU/mL (0.270-4.200) 10/23/20 23:50 Urine Color Yellow (Yellow) 10/23/20 14:00 Urine Turbidity Clear (Clear) 10/23/20 14:00 Urine pH 5.0 (5.0-7.0) 10/23/20 14:00 Ur Specific [place] 1.011 (1.003-1.030) 10/23/20 14:00 Urine Protein <15 mg/dl mg/dL (Negative) 10/23/20 14:00 Urine Glucose (UA) Neg mg/dL (Negative) 10/23/20 14:00 Urine Ketones Neg mg/dL (Negative) 10/23/20 14:00 Urine Blood Neg (Negative) 10/23/20 14:00 Urine Nitrite Neg (Negative) 10/23/20 14:00 Urine Bilirubin Neg (Negative) 10/23/20 14:00 Urine Urobilinogen < 2.0 mg/dL (<2.0) 10/23/20 14:00 Ur Leukocyte Esterase Mod (Negative) 10/23/20 14:00 Urine WBC (Auto) 2.0 /HPF (0.0-6.0) 10/23/20 14:00 Urine RBC (Auto) < 1.0 /HPF (0.0-6.0) 10/23/20 14:00 U Epithel Cells (Auto) 2.0 /HPF (0-13.0) 10/23/20 14:00 Urine Bacteria (Auto) 1+ /HPF (Negative) 10/23/20 14:00 Last Vital Signs Temp 97.6 F 10/26/20 07:34 Pulse 75 10/26/20 07:34 Resp 18 10/26/20 07:34 BP 103/59 10/26/20 07:34 Pulse Ox 97 10/26/20 07:34
[2020-10-26] MEDS: FENOFIBRATE 145 MG TAB PO SCH (21:28)
[2020-10-26] MEDS: AMITRIPTYLINE 10 MG TAB PO SCH (21:28)
[2020-10-26] MEDS: PRAVASTATIN 40 MG TAB PO SCH (21:29)
[2020-10-27] MEDS: LEVOTHYROXINE 150 MCG TAB PO SCH (06:32)
[2020-10-27] MEDS: CYCLOBENZAPRINE 10 MG TAB PO SCH ×2 (06:32→14:13)
[2020-10-27] MEDS: GABAPENTIN 400 MG CAP PO SCH ×2 (09:48→14:13)
[2020-10-27] MEDS: CELECOXIB 200 MG CAP PO SCH (09:48)
[2020-10-27] MEDS: FLUoxetine 20 MG CAP PO SCH (09:49)
--- NOTE | 2020-10-27 09:58 | Discharge Summary ---
Providers - Providers Date of Admission: 10/23/20 06:04 Date of discharge: 10/27/20 Attending physician: RICHARD VENTURA MD 10/23/20 02:54 Consult to Physician [CONS] Routine Comment: Consulting Provider: LAKEISHA FELIZ Physician Instructions: Ps manage existing conditions Reason For Exam: New pt H&P consult Primary care physician: RESIDENTIAL INSTALLER Hospitalization Reason for admission: depression Admitting Diagnosis: F33.2 - MAJOR DEPRESSV DISORDER, RECURRENT SEVERE W/O PSYCH FEATURES Hospital course: The patient was provided inpatient psychiatric treatment with safe and supportive care, medication adjustment, adverse effect monitoring, medical evaluations, medical treatments, assessment and psycho-education. The patient's mood, cognition, behavior, moral support are improved and stabilized. St the time of discharge, the patient had no endangering behavior and no debilitating adverse effects. The patient agreed on potential consequences of no treatment and gave informed consent. 10/23 Scarlet Galindo is a 70 y/o female patient who states she was admitted to the [facility] for severe depression. The patient also says she has a history of "moderate dementia and depression." She says she lost her spouse 3 years ago and her depression started then. The patient says she lacks social support. She says her and her kids "are on the oust." She denies suicidal thoughts at present but states she's thought of it "on and off." She denies homicidal thoughts. The patient also denies hallucinations of any kind. She says she saw a psychiatrist about a year ago but not since then. 10/24 The patient was seen today. She is lying awake in her room. She says she is depressed, lonely and needs someone to talk to. The patient encouraged to get up and go in the dayroom to be around people. She states she would. She denies SI/HI or hallucinations. She suicide thoughts come and go. 10/25 The patient was seen today. She is lying awake in her room. She says she is not good. The patient states "I'm not doing anything but laying here. No therapy. No one to talk to." The patient encouraged to get up and go in the day room. She says "I do but they all just mumble." I informed the patient that tomorrow she would get activity therapy. She was satisfied hearing this. She says "I'm depressed. I need help." She denies SI/HI or hallucinations of any kind. She says "I haven't had the suicidal thoughts this morning, but yesterday a little." 10/26 The patient was seen today. She is lying in bed. She is awake. She states she is tired. Although she states her depression is better and says she's not as depressed as she was coming in here, the patient says she doesn't feel she's getting any help. She says she thought she would get therapy of some sort. Advised the patient that recreational therapy would be today. She denies SI/HI. Disposition: TO HOME OR SELFCARE Allergies/Adverse Reactions: Allergies No Known Drug Allergies Allergy (Verified 10/23/20 02:44) Unknown Vital Signs: Last Vital Signs Temp 98.2 F 10/26/20 19:44 Pulse 85 10/26/20 19:44 Resp 18 10/26/20 19:44 BP 121/59 10/26/20 19:44 Pulse Ox 96 10/26/20 19:44 Last Lab: Laboratory Last Values WBC 8.9 K/mm3 (4.5-11.0) 10/23/20 23:50 RBC 4.47 M/mm3 (3.65-5.03) 10/23/20 23:50 Hgb 12.1 gm/dl (10.1-14.3) 10/23/20 23:50 Hct 36.6 % (30.3-42.9) 10/23/20 23:50 MCV 82 fl (79-97) 10/23/20 23:50 MCH 27 pg (28-32) L 10/23/20 23:50 MCHC 33 % (30-34) 10/23/20 23:50 RDW 15.7 % (13.2-15.2) H 10/23/20 23:50 Plt Count 401 K/mm3 (140-440) 10/23/20 23:50 Lymph % (Auto) 28.3 % (13.4-35.0) 10/23/20 23:50 [place] % (Auto) 9.1 % (0.0-7.3) H 10/23/20 23:50 Eos % (Auto) 1.5 % (0.0-4.3) 10/23/20 23:50 Baso % (Auto) 0.6 % (0.0-1.8) 10/23/20 23:50 Lymph # (Auto) 2.5 K/mm3 (1.2-5.4) 10/23/20 23:50 [place] # (Auto) 0.8 K/mm3 (0.0-0.8) 10/23/20 23:50 Eos # (Auto) 0.1 K/mm3 (0.0-0.4) 10/23/20 23:50 Baso # (Auto) 0.0 K/mm3 (0.0-0.1) 10/23/20 23:50 Seg Neutrophils % 60.5 % (40.0-70.0) 10/23/20 23:50 Seg Neutrophils # 5.4 K/mm3 (1.8-7.7) 10/23/20 23:50 Sodium 142 mmol/L (137-145) 10/23/20 23:50 Potassium 4.2 mmol/L (3.6-5.0) 10/23/20 23:50 Chloride 101.7 mmol/L (98-107) 10/23/20 23:50 Carbon Dioxide 25 mmol/L (22-30) 10/23/20 23:50 Anion Gap 20 mmol/L 10/23/20 23:50 BUN 19 mg/dL (7-17) H 10/23/20 23:50 Creatinine 0.8 mg/dL (0.6-1.2) 10/23/20 23:50 Estimated GFR > 60 ml/min 10/23/20 23:50 BUN/Creatinine Ratio 24 % 10/23/20 23:50 Glucose 88 mg/dL (65-100) 10/23/20 23:50 POC Glucose 91 mg/dL (70-105) 10/23/20 11:11 Hemoglobin A1c 5.9 % (4-6) 10/23/20 23:50 Calcium 9.6 mg/dL (8.4-10.2) 10/23/20 23:50 Total Bilirubin 0.20 mg/dL (0.1-1.2) 10/23/20 23:50 AST 22 units/L (5-40) 10/23/20 23:50 ALT 10 units/L (7-56) 10/23/20 23:50 Alkaline Phosphatase 163 units/L (35-129) H 10/23/20 23:50 Total Protein 6.7 g/dL (6.3-8.2) 10/23/20 23:50 Albumin 4.3 g/dL (3.9-5) 10/23/20 23:50 Albumin/Globulin Ratio 1.8 % 10/23/20 23:50 Triglycerides 265 mg/dL (2-149) H 10/23/20 23:50 Cholesterol 248 mg/dL (50-199) H 10/23/20 23:50 LDL Cholesterol Direct 175 mg/dL (50-130) H 10/23/20 23:50 HDL Cholesterol 42 mg/dL (40-59) 10/23/20 23:50 Cholesterol/HDL Ratio 5.90 % 10/23/20 23:50 TSH 1.900 mlU/mL (0.270-4.200) 10/23/20 23:50 Urine Color Yellow (Yellow) 10/23/20 14:00 Urine Turbidity Clear (Clear) 10/23/20 14:00 Urine pH 5.0 (5.0-7.0) 10/23/20 14:00 Ur Specific [place] 1.011 (1.003-1.030) 10/23/20 14:00 Urine Protein <15 mg/dl mg/dL (Negative) 10/23/20 14:00 Urine Glucose (UA) Neg mg/dL (Negative) 10/23/20 14:00 Urine Ketones Neg mg/dL (Negative) 10/23/20 14:00 Urine Blood Neg (Negative) 10/23/20 14:00 Urine Nitrite Neg (Negative) 10/23/20 14:00 Urine Bilirubin Neg (Negative) 10/23/20 14:00 Urine Urobilinogen < 2.0 mg/dL (<2.0) 10/23/20 14:00 Ur Leukocyte Esterase Mod (Negative) 10/23/20 14:00 Urine WBC (Auto) 2.0 /HPF (0.0-6.0) 10/23/20 14:00 Urine RBC (Auto) < 1.0 /HPF (0.0-6.0) 10/23/20 14:00 U Epithel Cells (Auto) 2.0 /HPF (0-13.0) 10/23/20 14:00 Urine Bacteria (Auto) 1+ /HPF (Negative) 10/23/20 14:00 Core Measure Documentation - Palliative Care Palliative Care/ Comfort Measures: Not Applicable - Core Measures Any of the following diagnoses?: none Exam - Constitutional Vitals: Temp Pulse Resp BP Pulse Ox 98.2 F 85 18 121/59 96 10/26/20 19:44 10/26/20 19:44 10/26/20 19:44 10/26/20 19:44 10/26/20 19:44 General appearance: Present: no acute distress - EENT Eyes: Present: PERRL, EOM intact ENT: hearing intact, clear oral mucosa - Neck Neck: Present: supple, normal ROM Plan Activity: advance as tolerated Weight Bearing Status: Weight Bear as Tolerated Care Plan Goals: maintain good and stable mental health Plan of Treatment: The patient should be compliant with medications, not to use drugs, and not to drink alcohol. The patient understands that if suicidal ideas, homicidal ideas or any endangering feeling arise, the patient should seek assistance including, but not limited to crisis hotline, and emergency room. Assessment: MDD Follow up with: PRIMARY CARE, [Primary Care Provider] - 7 Days Prescriptions: FLUoxetine [PROzac] 40 mg PO QDAY #60 capsule
[2020-10-27 10:44] VITALS: BP 101/60
== END 2020-10-27 17:43 | disposition home or self-care (01) | DRG 885 ==
LOC: UNDOADMIN 02:39 → 3A 02:39 → 5A 06:04
PROVIDERS: ADMIT Psychiatry & Neurology Psychiatry; ATTEND Psychiatry & Neurology Psychiatry
DX: F33.2 Major depressive disorder, recurrent severe without psychotic features (principal); K21.9 Gastro-esophageal reflux disease without esophagitis; M19.90 Unspecified osteoarthritis, unspecified site; I10 Essential (primary) hypertension; M79.7 Fibromyalgia; E03.9 Hypothyroidism, unspecified; F41.9 Anxiety disorder, unspecified; G89.29 Other chronic pain; F03.90 Unspecified dementia, unspecified severity, without behavioral disturbance, psychotic disturbance, mood disturbance, and anxiety; Z60.2 Problems related to living alone; Z85.3 Personal history of malignant neoplasm of breast
CPT/HCPCS: 36415; 80053; 80061; 81001; 82962; 83036; 84443; 85025; G0378; A9270-GY